=== PATIENT | female | born 1985 | race Caucasian/White ===

== ENCOUNTER 2020-12-24 08:30 | Emergency (ER) | payer MEDICAID ==
[~2020-12-24] VITALS: Ht 154.9 cm; Wt 49.4 kg
[2020-12-24 08:34] VITALS: BP 149/94
--- NOTE | 2020-12-24 08:45 | NUR ---
35 y/o female c/o sore throat, MOUTH PAIN X 1 MONTH AND RECTAL BLEEDING X YESTERDAY 9/10 pain. White patches noted to mouth area. reports diarrhea x3 days. denies nausea/vomiting. abd soft non tender. PMH: DENIES nka
--- NOTE | 2020-12-24 08:45 | NUR ---
Dr. Posada is evaluating the patient at bedside.
[2020-12-24] MEDS ORDERED: LIDOCAINE VISCOUS 2% 20 ML UDC PO ONE (08:55)
[2020-12-24] MEDS ORDERED: NYSTATIN 500 MU/5 ML UDC PO SCH (08:55)
--- NOTE | 2020-12-24 09:00 | NUR ---
Rectal exam performed per Dr Posada with Pineda POLK at bedside during procedure. Patient tolerated well.
[2020-12-24] MEDS ORDERED: NYST100022 PO (09:06)
[2020-12-24] MEDS ORDERED: PRAM56OI TP (09:06)
[2020-12-24 09:20] VITALS: BP 149/94
--- NOTE | 2020-12-24 09:20 | NUR ---
Patient discharged with v/s stable. Written and verbal after care instructions given and explained. Patient alert, oriented and verbalized understanding of instructions. Ambulatory with steady gait. All questions addressed prior to discharge. ID band removed. Patient advised to follow up with PMD. Rx of NYSTATIN AND PRAMOXINE HCL/ZINC OXIDE given. Patient educated on indication of medication including possible reaction and side effects. Opportunity to ask questions provided and answered.
== END 2020-12-24 09:20 | disposition home or self-care (01) ==
LOC: MED 08:30
DX: B37.0 Candidal stomatitis (principal); R19.7 Diarrhea, unspecified; K64.9 Unspecified hemorrhoids; Z79.899 Other long term (current) drug therapy
CPT/HCPCS: 99283

== ENCOUNTER 2021-01-29 15:08 | Emergency (ER) | payer SELFPAY ==
[~2021-01-29] VITALS: Ht 154.9 cm; Wt 46.9 kg
[~2021-01-29 15:08] MED LIST: NYST100022 PO; PRAM56OI TP
[2021-01-29 15:27] VITALS: BP 113/68
--- NOTE | 2021-01-29 16:12 | NUR ---
PT AMBULATED TO BED 01
--- NOTE | 2021-01-29 16:28 | NUR ---
35 Y/O FEMALE C/O THROAT PAIN WITH WHITE COATING AND BUMPS ON TONGUE X3 MONTHS. PT C/O GENERAL WEAKNESS, FATIGUE, ESCOBAR, BODY ACHES X5 DAYS. PT STATES SHE WENT TO CLINICS/SPECIALISTS, WAS GIVEN ANTIBVIRALS AND NOW IT IS GETTING WORSE. WANTS TO GET CHECKED FOR HERPES. PT STATES "SHE IS UNABLE TO SMELL FOOD." PMH:DENIES NKDA
--- NOTE | 2021-01-29 16:28 | NUR ---
MD BEDSIDE EVALUATING PT
--- NOTE | 2021-01-29 16:53 | NUR ---
Patient discharged with v/s stable. Written and verbal after care instructions given and explained. Patient alert, oriented and verbalized understanding of instructions. Ambulatory with steady gait. All questions addressed prior to discharge. ID band removed. Patient advised to follow up with PMD. Opportunity to ask questions provided and answered.
== END 2021-01-29 16:53 | disposition home or self-care (01) ==
LOC: MED 15:08
DX: K14.0 Glossitis (principal); Z79.899 Other long term (current) drug therapy
CPT/HCPCS: 99281

== ENCOUNTER 2022-09-23 20:35 | Observation (INO) | payer OTHER ==
[~2022-09-23] VITALS: Ht 154.9 cm; Wt 53.1 kg
[2022-09-23] MEDS ORDERED: ACETAMINOPHEN EXTRA STRENGTH 500 MG TAB PO PRN (21:50)
[2022-09-23 22:00] VITALS: BP 108/59
[2022-09-23 22:44] LABS: APPEARANCE,URINE CLEAR (CLEAR); BILIRUBIN,URINE NEGATIVE (NEGATIVE); BLOOD, URINE NEGATIVE (NEGATIVE); COLOR,URINE YELLOW (YELLOW); LEUKOCYTE ESTERASE ,URINE NEGATIVE (NEGATIVE); NITRITE, URINE NEGATIVE (NEGATIVE); UGLUCOSE NEGATIVE (NEGATIVE)
[2022-09-23] MEDS ORDERED: PNV1TABL5 PO (23:31)
== END 2022-09-23 23:43 | disposition home or self-care (01) ==
LOC: MLD 20:35
PROVIDERS: ADMIT Obstetrics & Gynecology; ATTEND Obstetrics & Gynecology
DX: O26.892 Other specified pregnancy related conditions, second trimester (principal); R10.9 Unspecified abdominal pain; Z3A.20 20 weeks gestation of pregnancy
CPT/HCPCS: 81003; G0378; 59025

== ENCOUNTER 2023-01-02 16:30 | Observation (INO) | payer OTHER ==
[~2023-01-02] VITALS: Ht 154.9 cm; Wt 65.8 kg
[~2023-01-02 16:30] MED LIST changes: -NYST100022 PO; +PNV1TABL5 PO; -PRAM56OI TP
[2023-01-02 16:52] VITALS: BP 118/67
[2023-01-02] MEDS ORDERED: PRETAB PO (17:10)
[2023-01-02] MEDS ORDERED: OSC500 PO (17:10)
[2023-01-02] MEDS ORDERED: FERR-149 PO (17:10)
[2023-01-02] MEDS ORDERED: ASPI-1822 PO (17:10)
[2023-01-02] MEDS ORDERED: LACTATED RINGERS 1,000 ML IV SCH (17:30)
[2023-01-02] MEDS: TERBUTALINE 1 MG/ML VIAL SUBQ SCH ×2 (17:43→18:13)
[2023-01-03] MEDS ORDERED: LACTATED RINGERS 1,000 ML IV SCH (17:30)
== END 2023-01-02 20:00 | disposition home or self-care (01) ==
LOC: MLD 16:30
PROVIDERS: ADMIT Obstetrics & Gynecology; ATTEND Obstetrics & Gynecology
DX: O26.893 Other specified pregnancy related conditions, third trimester (principal); R10.9 Unspecified abdominal pain; O42.913 Preterm premature rupture of membranes, unspecified as to length of time between rupture and onset of labor, third trimester; Z3A.34 34 weeks gestation of pregnancy
CPT/HCPCS: 59025; 81000; 96360; 96361; 96372; G0378; J3105